=== PATIENT | male | born 1960 | race Caucasian/White ===

== ENCOUNTER 2017-01-28 14:22 | Inpatient (IN) | payer MEDICARE ==
[2017-01-28] MEDS ORDERED: ZIPRASIDONE 20 MG VIAL IM PRN (19:27)
[2017-01-28] MEDS ORDERED: ACETAMINOPHEN TAB 325 MG TAB PO PRN (19:27)
[2017-01-28] MEDS ORDERED: MAGNESIUM HYDROXIDE 2,400 MG/10 ML CUP PO PRN (19:27)
[2017-01-28] MEDS ORDERED: LORazepam 1 MG TAB PO PRN (19:27)
[2017-01-28] MEDS ORDERED: MAG HYDROX/AL HYDROX/SIMETH 30 ML CUP PO PRN (19:27)
[2017-01-28] MEDS ORDERED: ZOLPIDEM 10 MG TAB PO PRN (19:35)
[2017-01-28 20:15] LABS: Glucose,Whole Blood 314 mg/dL (75-99)
--- NOTE | 2017-01-28 20:47 | P.HPIM ---
History of Present Illness H&P Date: 01/28/17 Chief Complaint: Suicidal ideation 56-year-old male with past medical history significant for multiple medical problems as detailed below presented to the emergency department an outside facility because of throat and nasal congestion. He was tested for strep and flu and both came back negative. He then told the staff that he was thinking about killing himself. After that he was referred to our psychiatry facility. Patient recently broke up with his girlfriend about 1-2 weeks ago and that is why he feels down. He also lost his brother, father and mother several years ago and feels lonely. He denied having fevers, chills, nausea or vomiting, headaches, diaphoresis, abdominal pain, diarrhea, chest pain or shortness of breath. He uses a walker because of pain in his feet and knees. About one week ago he fell on his right knee and currently he is having right knee pain. He complained of significant insomnia and ask for the dose of the sleeping pill to be increased. The patient admitted that he chronically feels depressed, he has suicidal ideation on and off but at the time of interview he was not suicidal. He denies symptoms of anxiety. Review of Systems 12 point review of system performed, negative except for HPI Past Medical History Past Medical History: Diabetes Mellitus, Hypertension Additional Past Medical History / Comment(s): Morbid obesity, peripheral neuropathy, chronic osteoarthritis, insomnia, chronic depression, hyperlipidemia. History of Any Multi-Drug Resistant Organisms: None Reported Past Surgical History: No Surgical Hx Reported Past Psychological History: No Psychological Hx Reported Smoking Status: Current every day smoker Past Alcohol Use History: None Reported Past Drug Use History: None Reported Medications and Allergies Home Medications Medication Instructions Recorded Confirmed Type glipiZIDE [Glucotrol] 10 mg PO AC-BID 07/22/15 01/28/17 History metFORMIN HCL [Glucophage] 1,000 mg PO BID 07/22/15 01/28/17 History Atorvastatin [Lipitor] 20 mg PO DAILY 01/28/17 01/28/17 History Citalopram Hydrobromide [CeleXA] 20 mg PO DAILY 01/28/17 01/28/17 History Ibuprofen [Motrin] 600 mg PO Q8HR 01/28/17 01/28/17 History Pregabalin [Lyrica] 50 mg PO BID 01/28/17 01/28/17 History Zolpidem Tartrate [Ambien] 10 mg PO HS PRN 01/28/17 01/28/17 History amLODIPine [Norvasc] 10 mg PO DAILY 01/28/17 01/28/17 History Allergies Allergy/AdvReac Type Severity Reaction Status Date / Time Penicillins Allergy Rash/Hives Verified 07/22/15 11:58 Physical Exam Vitals: Vital Signs Temp Pulse Resp BP 01/28/17 18:05 98.1 F 73 16 150/77 Intake and Output 01/28/17 01/28/17 01/28/17 06:59 14:59 22:59 Other: Weight 131.343 kg Patient Weight 01/29/17 06:59 Weight 131.343 kg Constitutional: No acute distress, conversant, pleasant, morbidly obese Eyes:Anicteric sclerae, moist conjunctiva, no lid-lag, PERRLA, ENMT: Oropharynx clear, no erythema, exudates Neck: Supple, FROM, no masses, or JVD, No carotid bruits, No thyromegaly Lungs: Diminished breath sounds bilaterally, Clear to percussion, Normal respiratory effort, no accessory muscle use Cardiovascular: Heart regular in rate and rhythm, No murmurs, gallops, or rubs, No peripheral edema Abdominal: Obese, Soft, Nontender, no guarding, rebound or rigidity, Normoactive bowel sounds, No hepatomegaly, No splenomegaly, No palpable mass Skin: Normal temperature, tone, texture, turgor, no induration, No subcutaneous nodules, +scaly patchy rash on the elbows, No ulcers Extremities: No digital cyanosis, No clubbing, Pedal pulses intact and symmetrical, Radial pulses intact and symmetrical, No calf tenderness Psychiatric: Alert and oriented to person, place and time, appropriate affect, intact judgement Neuro: Muscles Strength 5/5 in all 4 extremities, Sensation to light touch grossly present throughout, Cranial nerves II-XII grossly intact, no focal sensory deficits Results Labs: Abnormal Lab Results - Last 24 Hours (Table) 01/28/17 Range/Units 20:09 POC Glucose (mg/dL) 314 H (75-99) mg/dL Assessment and Plan Plan: #1.Suicidal Ideation, major depression disorder: Management per psychiatry Currently patient is not suicidal. #2.Diabetes mellitus type 2 with peripheral neuropathy The patient was advised to lose weight and exercise Sliding scale insulin, with blood sugar checks every AC and HS Continue metformin and glipizide Already on Lyrica for peripheral neuropathy Check CBC and BMP, Mg and phos #3 Benign hypertension: Continue Norvasc #4 Hyperlipidemia Continue statin #5 smoking: Advised to quit Nicotine patch #6 Insomnia: Ambien 10 mg daily at bedtime when necessary
[2017-01-28] MEDS ORDERED: INSULIN REGULAR 100 UNIT/ML VIAL SQ SCH (21:00)
[2017-01-28] MEDS: PREGABALIN 50 MG CAP PO SCH (21:08)
[2017-01-28] MEDS: IBUPROFEN 600 MG TAB PO SCH (21:08)
[2017-01-28] MEDS: metFORMIN 500 MG TAB PO SCH (21:08)
[2017-01-28] MEDS: INSULIN LISPRO (humaLOG) 300 UNIT/3 ML VIAL SQ SCH (21:10)
[2017-01-28] MEDS: diphenhydrAMINE 50 MG CAP PO PRN (22:32)
[2017-01-29] MEDS: IBUPROFEN 600 MG TAB PO SCH ×4 (01:39→23:17)
[2017-01-29 04:44] LABS: Glucose,Whole Blood 158 mg/dL (75-99)
[2017-01-29 06:44] LABS: Glucose,Whole Blood 224 mg/dL (75-99)
[2017-01-29] MEDS: glipiZIDE 10 MG TAB PO SCH ×2 (08:52→17:55)
[2017-01-29] MEDS: amLODIPine 10 MG TAB PO SCH (08:52)
[2017-01-29] MEDS: PREGABALIN 50 MG CAP PO SCH ×2 (08:53→21:45)
[2017-01-29] MEDS: metFORMIN 500 MG TAB PO SCH ×2 (08:53→17:55)
[2017-01-29] MEDS: ATORVASTATIN 20 MG TAB PO SCH (08:53)
[2017-01-29] MEDS: CITALOPRAM HYDROBROMIDE 20 MG TAB PO SCH (08:53)
[2017-01-29] MEDS: NICOTINE 21MG/24HR PATCH TRANSDERM SCH (08:54)
[2017-01-29] MEDS: INSULIN LISPRO (humaLOG) 300 UNIT/3 ML VIAL SQ SCH ×4 (08:54→20:23)
[2017-01-29 09:49] LABS: Basophils # (A) 0.1 k/uL (0-0.2); Basophils % (A) 1 %; CH 29.9; CHCM 32.5; Eosinophils # (A) 0.3 k/uL (0-0.7); Eosinophils % (A) 3 %; HCT 49.3 % (39.0-53.0); HDW 2.75; HGB 15.6 gm/dL (13.0-17.5); Luc # (Auto) 0.28; Luc % (Auto) 3; Lymphocytes # (A) 2.6 k/uL (1.0-4.8); Lymphocytes % (A) 26 %; MCH 29.2 pg (25.0-35.0); MCHC 31.6 g/dL (31.0-37.0); MCV 92.4 fL (80.0-100.0); Mean Platelet Volume 6.9; Monocytes # (A) 0.5 k/uL (0-1.0); Monocytes % (A) 5 %; Neutrophils # (A) 6.5 k/uL (1.3-7.7); Neutrophils % (A) 63 %; RBC 5.33 m/uL (4.30-5.90); RDW 13.6 % (11.5-15.5); WBC 10.3 k/uL (3.8-10.6); WBC (Perox) 9.46
[2017-01-29 10:05] LABS: Cholesterol 144 mg/dL (<200); HDL Cholesterol 31 mg/dL (40-60)
[2017-01-29 10:36] LABS: ALT 50 U/L (21-72); AST 20 U/L (17-59); Alkaline Phosphatase 93 U/L (38-126); Anion Gap 11 mmol/L; Bilirubin, Delta 0.2 mg/dL (0.0-0.2); Blood Urea Nitrogen 17 mg/dL (9-20); Calcium 9.1 mg/dL (8.4-10.2); Carbon Dioxide 25 mmol/L (22-30); Chloride 102 mmol/L (98-107); Glucose 340 mg/dL (74-99); Magnesium 1.7 mg/dL (1.6-2.3); Non-African American GFR(MDRD) >60 (>60 ml/min/1.73 sqM); Phosphorus 3.8 mg/dL (2.5-4.5); Potassium 4.7 mmol/L (3.5-5.1); Sodium 138 mmol/L (137-145); Total Bilirubin 0.4 mg/dL (0.2-1.3); Total Protein 6.5 g/dL (6.3-8.2)
[2017-01-29 12:01] LABS: Hemoglobin A1C 9.8 % (4.2-6.1)
[2017-01-29 12:49] LABS: Glucose,Whole Blood 125 mg/dL (75-99)
[2017-01-29 17:05] LABS: Glucose,Whole Blood 273 mg/dL (75-99)
[2017-01-29 20:15] LABS: Glucose,Whole Blood 275 mg/dL (75-99)
--- NOTE | 2017-01-30 01:10 | P.HP ---
Psychiatric H&P - . H&P Date: 01/29/17 History & Physical: Allergy/AdvReac Type Severity Reaction Status Date / Time Penicillins Allergy Rash/Hives Verified 07/22/15 11:58 Vital Signs Temp 98 F 01/29/17 07:14 Pulse 75 01/29/17 07:14 Resp 16 01/29/17 07:14 BP 113/64 01/29/17 07:14 Pulse Ox Laboratory Last Values POC Glucose (mg/dL) 224 mg/dL (75-99) H 01/29/17 06:41 POC Glu Freelance Interpreter/Translator ID Jeannie Soler 01/29/17 06:41 HPI: Patient is a 56 year old Caucasia male who presents to the inpatient unit after endorsing new onset SI with plan to hang self. Patient called EMS and brought hospital. Patient denies any significant past psychiatric history other than an admission in 4-5 years ago for SI without plan and does not recall being discharged with any medications. Patient states he has been feeling increasingly depressed since his parents a few years ago and recently his girlfriend of 14 months abruptly left without notice to stay with her sister after learning that she had breast cancer. Patient states sister told girlfriend that patient was incompetent and unable to care for her and urged girlfriend to move. At present, patient endorses full criteria for MDD, he denies any symptoms suggestive of a past or recent manic episode. He denies any significant past trauma or abuse. At present denies SI/HI/AVH. Inpatient goals to improve mood, coping skills, and help with insomnia. PSYCHIATRIC HISTORY: admission for SI 4-5 years ago, uncertain of any medications prescribed, no post discharge follow up PMH: Past Medical History: Diabetes Mellitus, Hypertension Additional Past Medical History / Comment(s): Morbid obesity, peripheral neuropathy, chronic osteoarthritis, insomnia, chronic depression, hyperlipidemia. Past Surgical History: No Surgical Hx Reported Past Psychological History: No Psychological Hx Reported Smoking Status: Current every day smoker Past Alcohol Use History: None Reported Past Drug Use History: None Reported HOME MEDICATIONS: 3 Medication Instructions Recorded Confirmed glipiZIDE [Glucotrol] 10 mg PO AC-BID 07/22/15 01/28/17 metFORMIN HCL [Glucophage] 1,000 mg PO BID 07/22/15 01/28/17 Atorvastatin [Lipitor] 20 mg PO DAILY 01/28/17 01/28/17 Citalopram Hydrobromide [CeleXA] 20 mg PO DAILY 01/28/17 01/28/17 Ibuprofen [Motrin] 600 mg PO Q8HR 01/28/17 01/28/17 Pregabalin [Lyrica] 50 mg PO BID 01/28/17 01/28/17 Zolpidem Tartrate [Ambien] 10 mg PO HS PRN 01/28/17 01/28/17 amLODIPine [Norvasc] 10 mg PO DAILY 01/28/17 01/28/17 CHEMICAL DEPENDENCY HISTORY: none SOCIAL HISTORY: education: HS diploma occupational: 14 years ago, division engineer environmental: lives alone, apartment, 2nd floor : no religious: no access to firearms: no sexual orientation: heterosexual safety at home: yes STRENGTHS/WEAKNESSES: supportive family, stable house / uncontrolled diabetes MENTAL STATUS EXAM: Appearance: alert, well groomed, appears stated age, steady gait Behavior: no psychomotor agitation or psychomotor retardation, no abnormal movements, fair eye contact Attitude: cooperative Speech: normal rate, rhythm, fluency, articulation, volume, and prosody; primary language: Kyrgy[place] Mood: euthymic Affect: congruent, reactive Thought processes: linear, organized Thought content: patient does not appear to be responding to internal stimuli; patient denies auditory and visual hallucinations, no delusions appreciated Insight: fair Judgment: fair Cognitive: oriented to all 3 spheres, average intelligence Assessment and Plan (1) Major depressive disorder, single episode, severe Narrative/Plan: start Wellbutrin XL 150-mg PO QAM start Trazodone 100-mg PO QHS continue Celexa 20-mg PO QAM continue Ambien 10-mg PO QHS Current Visit: Yes Status: Acute Code(s): F32.2 - MAJOR DEPRESSV DISORD, SINGLE EPSD, SEV W/O PSYCH FEATURES SNOMED Code(s): 552230065097 Plan: Continue hospitalization, new onset MDD with SI with plan Patient encouraged to participate in group, recreational, and activity therapies Patient plans to discharge home back to family Time with Patient: Greater than 30
[2017-01-30 05:20] LABS: Glucose,Whole Blood 190 mg/dL (75-99)
[2017-01-30 05:41] VITALS: RESP 18
[2017-01-30] MEDS: INSULIN LISPRO (humaLOG) 300 UNIT/3 ML VIAL SQ SCH ×4 (07:55→21:43)
[2017-01-30] MEDS: glipiZIDE 10 MG TAB PO SCH ×2 (07:57→17:52)
[2017-01-30] MEDS: metFORMIN 500 MG TAB PO SCH ×2 (07:57→17:52)
[2017-01-30] MEDS: amLODIPine 10 MG TAB PO SCH (09:11)
[2017-01-30] MEDS: ATORVASTATIN 20 MG TAB PO SCH (09:11)
[2017-01-30] MEDS: PREGABALIN 50 MG CAP PO SCH ×2 (09:11→21:46)
[2017-01-30] MEDS: buPROPion XL 150 MG TAB.ER.24H PO SCH (09:11)
[2017-01-30] MEDS: CITALOPRAM HYDROBROMIDE 20 MG TAB PO SCH (09:11)
[2017-01-30] MEDS: IBUPROFEN 600 MG TAB PO SCH ×2 (09:12→16:45)
[2017-01-30 10:01] VITALS: BMI 45.3
[2017-01-30] MEDS ORDERED: ALBUTEROL NEBULIZED 2.5 MG/3 ML INHALATION PRN (10:02)
[2017-01-30] MEDS: NICOTINE 21MG/24HR PATCH TRANSDERM SCH (10:07)
[2017-01-30] MEDS: ALBUTEROL INHALER 60 PUFF/8 GM INHALER INHALATION PRN (12:19)
[2017-01-30 12:58] LABS: Glucose,Whole Blood 165 mg/dL (75-99)
[2017-01-30] MEDS ORDERED: IBUPROFEN 600 MG TAB PO PRN (16:47)
[2017-01-30 17:46] LABS: Glucose,Whole Blood 219 mg/dL (75-99)
[2017-01-30 20:15] LABS: Glucose,Whole Blood 278 mg/dL (75-99)
[2017-01-30] MEDS ORDERED: traZODone HCL 100 MG TAB PO SCH (21:00)
[2017-01-30 22:52] LABS: Glucose,Whole Blood 236 mg/dL (75-99)
[2017-01-30] MEDS: diphenhydrAMINE 50 MG CAP PO PRN (23:43)
--- NOTE | 2017-01-31 00:43 | P.PN ---
Progress Note - Text Progress Note Date: 01/30/17 Vital Signs: Temp 97.5 F L 01/30/17 05:40 Pulse 68 01/30/17 05:40 Resp 18 01/30/17 05:40 BP 149/72 01/30/17 05:40 Pulse Ox Interval History: Patient reports feeling better having slept through the night with addition of Trazodone to regimen. Reports contact with family and desire to discharge back home. States he has thought a lot about his situation, and no longer has SI. Plans to follow up OP with [facility]. At this time, denies SI/HI/AVH. Mental Status Exam: Appearance: alert, well groomed, appears stated age, steady gait Behavior: no psychomotor agitation or psychomotor retardation, no abnormal movements, fair eye contact Attitude: cooperative Speech: normal rate, rhythm, fluency, articulation, volume, and prosody; primary language: [place] Mood: euthymic Affect: congruent, reactive Thought processes: linear, organized Thought content: patient does not appear to be responding to internal stimuli; patient denies auditory and visual hallucinations, no delusions appreciated Insight: fair Judgment: fair Cognitive: oriented to all 3 spheres, average intelligence Plan: start Wellbutrin XL 150-mg PO QAM start Trazodone 100-mg PO QHS continue Celexa 20-mg PO QAM continue Ambien 10-mg PO QHS continue hospitalization patient encouraged to participate in group, recreational, and activity therapies patient plans to discharge home back to family
[2017-01-31 06:02] LABS: Glucose,Whole Blood 189 mg/dL (75-99)
[2017-01-31 06:52] VITALS: BP 154/67; PULSE 76; TEMP 97.6
[2017-01-31] MEDS: ALBUTEROL INHALER 60 PUFF/8 GM INHALER INHALATION PRN (07:46)
[2017-01-31] MEDS: amLODIPine 10 MG TAB PO SCH (08:49)
[2017-01-31] MEDS: glipiZIDE 10 MG TAB PO SCH (08:49)
[2017-01-31] MEDS: metFORMIN 500 MG TAB PO SCH (08:49)
[2017-01-31] MEDS: NICOTINE 21MG/24HR PATCH TRANSDERM SCH (08:50)
[2017-01-31] MEDS: PREGABALIN 50 MG CAP PO SCH (08:50)
[2017-01-31] MEDS: CITALOPRAM HYDROBROMIDE 20 MG TAB PO SCH (08:50)
[2017-01-31] MEDS: buPROPion XL 150 MG TAB.ER.24H PO SCH (08:50)
[2017-01-31] MEDS: INSULIN LISPRO (humaLOG) 300 UNIT/3 ML VIAL SQ SCH ×2 (08:50→12:37)
[2017-01-31] MEDS: ATORVASTATIN 20 MG TAB PO SCH (08:50)
--- NOTE | 2017-03-02 18:00 | P.DS ---
Providers Date of admission: 01/28/17 18:02 Expected date of discharge: 01/31/17 Attending physician: Jorgito Neely DO Consults: 01/28/17 19:27 Consult Physician Routine Consulting Provider: Miley Physician Consult Reason/Comments: H & P and medical care Do you want consulting provider notified?: Already Contacted Primary care physician: Jim Sharma - Discharge Diagnosis(es) (1) Major depressive disorder, single episode, severe Status: Acute Hospital Course: Patient is a 56-year-old male who presented to the inpatient unit after endorsing new onset SI with plan to hang self. Patient called EMS and brought to hospital. Patient denied any significant past psychiatric history other than an admission in 4-5 years ago for SI without plan and did not recall being discharged with any medications. Patient stated he has been feeling increasingly depressed since his parents a few years ago and recently his girlfriend of 14 months abruptly left without notice to stay with her sister after learning that she had breast cancer. Patient stated said sister told girlfriend that patient was incompetent and unable to care for her and urged girlfriend to move. At time of admission, patient endorsed full criteria for MDD , he denied any symptoms suggestive of a past or recent manic or hypomanic episodes. He denies any significant past trauma or abuse. Inpatient goals to improve mood, coping skills, and help with insomnia. Patient was started on Wellbutrin XL and Trazodone in addition to his current home regimen of Celexa, Ambien, and Lyrica. He tolerated these well and reported sleeping better the following night after admission. Patient requested discharge home stating he made a mistake, has no intention of harming self, and is certain his brothers will help him get into new OP appointments and have always been good social support. SW contacted family who had no objection to patient discharging today. Patient will follow up with [facility] as noted. Patient was compliant with medications, attended most group/recreational therapies. He attended all meals. Sleep improved as noted. Patient did not require emergency medication. During hospital course, insulin was adjusted. New prescriptions and prescription for glucometer were provided by medical team at time of discharge. At time of discharge, patient denied SI/HI/AVH. Pertinent Studies: Hemoglobin A1c 9.8 % (4.2-6.1) H 01/29/17 09:04 Patient Condition at Discharge: Stable Plan - Discharge Summary New Discharge Prescriptions: New Albuterol Inhaler [Ventolin Hfa Inhaler] 2 puff INHALATION RT-QID PRN #1 inhaler PRN Reason: Shortness Of Breath Or Wheezing Blood Sugar Diagnostic [Test Strips] 1 each AC-TID #100 strip Blood-Glucose Meter [Blood Glucose Monitor] 1 each AC-TID #1 each Lancets 1 each AC-TID #100 each Nicotine 21Mg/24Hr Patch [Habitrol] 1 patch TRANSDERM DAILY #14 patch INSULIN LISPRO (HumaLOG) [HumaLOG] See Protocol SQ ACHS #1 vial Continue amLODIPine [Norvasc] 10 mg PO DAILY #30 tab Atorvastatin [Lipitor] 20 mg PO DAILY #30 tab glipiZIDE [Glucotrol] 10 mg PO AC-BID #60 tab metFORMIN HCL [Glucophage] 1,000 mg PO BID #60 tablet Changed Ibuprofen [Motrin] 600 mg PO Q8HR PRN #9 tab PRN Reason: Pain No Action Citalopram Hydrobromide [CeleXA] 20 mg PO DAILY Pregabalin [Lyrica] 50 mg PO BID Zolpidem Tartrate [Ambien] 10 mg PO HS PRN PRN Reason: Insomnia Discharge Medication List Citalopram Hydrobromide [CeleXA] 20 mg PO DAILY 01/28/17 [History] Pregabalin [Lyrica] 50 mg PO BID 01/28/17 [History] Zolpidem Tartrate [Ambien] 10 mg PO HS PRN 01/28/17 [History] Albuterol Inhaler [Ventolin Hfa Inhaler] 2 puff INHALATION RT-QID PRN #1 inhaler 01/30/17 [Rx] Atorvastatin [Lipitor] 20 mg PO DAILY #30 tab 01/30/17 [Rx] Blood Sugar Diagnostic [Test Strips] 1 each AC-TID #100 strip 01/30/17 [Rx] Blood-Glucose Meter [Blood Glucose Monitor] 1 each AC-TID #1 each 01/30/17 [ Rx] Ibuprofen [Motrin] 600 mg PO Q8HR PRN #9 tab 01/30/17 [Rx] Lancets 1 each AC-TID #100 each 10/19/17 [Rx] Nicotine 21Mg/24Hr Patch [Habitrol] 1 patch TRANSDERM DAILY #14 patch 01/30/17 [ Rx] amLODIPine [Norvasc] 10 mg PO DAILY #30 tab 01/30/17 [Rx] glipiZIDE [Glucotrol] 10 mg PO AC-BID #60 tab 01/30/17 [Rx] metFORMIN HCL [Glucophage] 1,000 mg PO BID #60 tablet 01/30/17 [Rx] INSULIN LISPRO (HumaLOG) [HumaLOG] See Protocol SQ ACHS #1 vial 01/31/17 [Rx] Follow up Appointment(s)/Referral(s): [facility] [Outside] - 02/05/17 3:00 pm (Wagner Guzman) Patient Instructions/Handouts: Depression (DC) Activity/Diet/Wound Care/Special Instructions: Activity and diet as tolerated. Avoid the use of street drugs and alcohol. Take all medications as prescribed. When you are in need of refills on your medications please contact your medical provider and/or outpatient psychiatrist to have this done. Please go to scheduled outpatient appointment for aftercare. If symptoms return or become worse call the crisis line at and/ or go to the nearest emergency room for an evaluation Discharge Disposition: HOME SELF-CARE
== END 2017-01-31 12:16 | disposition home or self-care (01) | DRG 885 ==
LOC: 3MHU 18:02
PROVIDERS: ADMIT Psychiatry & Neurology Psychiatry; ATTEND Psychiatry & Neurology Psychiatry
DX: F32.2 Major depressive disorder, single episode, severe without psychotic features (principal); R45.851 Suicidal ideations; E11.42 Type 2 diabetes mellitus with diabetic polyneuropathy; E11.65 Type 2 diabetes mellitus with hyperglycemia; E78.5 Hyperlipidemia, unspecified; F17.200 Nicotine dependence, unspecified, uncomplicated; G47.00 Insomnia, unspecified; I10 Essential (primary) hypertension; E66.01 Morbid (severe) obesity due to excess calories; M25.561 Pain in right knee; R09.81 Nasal congestion; M19.90 Unspecified osteoarthritis, unspecified site; Z79.84 Long term (current) use of oral hypoglycemic drugs; Z79.899 Other long term (current) drug therapy; Z88.0 Allergy status to penicillin; W19.XXXA Unspecified fall, initial encounter
CPT/HCPCS: 80048; 80061; 80076; 83036; 83735; 84100; 84443; 85025; 94640

== ENCOUNTER 2017-08-09 20:08 | Inpatient (IN) | payer MEDICARE, MEDICAID ==
--- NOTE | 2017-08-09 20:42 | ED ---
Psych HPI - General Chief Complaint: Psychiatric Symptoms Stated Complaint: SUICIDAL Time Seen by Provider: 08/09/17 20:25 Source: patient, EMS, RN notes reviewed Mode of arrival: EMS - History of Present Illness Initial Comments: This is a 56-year-old male who presents to the emergency department for mental health evaluation. Patient states that he has been feeling "stressed out today. " He states he was thinking about his family members who have and felt sad. He states that he pulled a knife on himself. He contacted EMS himself and was transported to the emergency department. Patient states that he does currently have suicidal ideation but is feeling better. He denies homicidal ideation. Denies alcohol or illicit drug use. Denies visual hallucinations. He does state that he sometimes thinks that he hears his mother talking to him. Denies any recent illnesses. States that he has been feeling well physically. Denies fever, chills, chest pain, shortness of breath, abdominal pain, nausea or vomiting, constipation or diarrhea, dysuria or hematuria, numbness or tingling, headache or vision changes. - Related Data Home Medications Medication Instructions Recorded Confirmed Pregabalin [Lyrica] 50 mg PO BID 01/28/17 08/09/17 RX: Citalopram Hydrobromide 20 mg PO DAILY 01/28/17 08/09/17 [CeleXA] Zolpidem Tartrate [Ambien] 10 mg PO HS PRN 01/28/17 08/09/17 Previous Rx's Medication Instructions Recorded Blood Sugar Diagnostic [Test 1 each AC-TID #100 strip 01/30/17 Strips] Blood-Glucose Meter [Blood Glucose 1 each AC-TID #1 each 01/30/17 Monitor] RX: Atorvastatin [Lipitor] 20 mg PO DAILY #30 tab 01/30/17 RX: Ibuprofen [Motrin] 600 mg PO Q8HR PRN #9 tab 01/30/17 RX: Lancets 1 each AC-TID #100 each 01/30/17 RX: Nicotine 21Mg/24Hr Patch 1 patch TRANSDERM DAILY #14 patch 01/30/17 [Habitrol] RX: amLODIPine [Norvasc] 10 mg PO DAILY #30 tab 01/30/17 RX: glipiZIDE [Glucotrol] 10 mg PO AC-BID #60 tab 01/30/17 RX: metFORMIN HCL [Glucophage] 1,000 mg PO BID #60 tablet 01/30/17 Allergies Allergy/AdvReac Type Severity Reaction Status Date / Time Penicillins Allergy Rash/Hives Verified 08/09/17 20:12 Review of Systems ROS Statement: Those systems with pertinent positive or pertinent negative responses have been documented in the HPI. ROS Other: All systems not noted in ROS Statement are negative. Past Medical History Past Medical History: Diabetes Mellitus, Hyperlipidemia, Hypertension Additional Past Medical History / Comment(s): Morbid obesity, peripheral neuropathy, chronic osteoarthritis, insomnia, chronic depression, History of Any Multi-Drug Resistant Organisms: None Reported Past Surgical History: No Surgical Hx Reported Past Psychological History: Anxiety, Depression Smoking Status: Current every day smoker Past Alcohol Use History: None Reported Past Drug Use History: None Reported General Exam - General Exam Comments Initial Comments: General: Awake and alert, well-developed; in no apparent distress. HEENT: Head atraumatic, normocephalic. Pupils are equal, round and reactive to light. Extraocular movements intact. Oropharynx moist without erythema or exudate. Neck: Supple. Normal ROM. Cardiovascular: Regular rate and rhythm. No murmurs, rubs or gallops. Chest symmetrical. Respiratory: Lungs clear to auscultation bilaterally. No wheezes, rales or rhonchi. Normal respiratory effort with no use of accessory muscles. Abdomen: Soft, non-tender, non-distended. No rigidity, rebound or guarding. Normal bowel sounds in all 4 quadrants. Musculoskeletal: Normal ROM, no tenderness bilateral upper and lower extremities. Ambulating normally. Skin: [place], warm and dry with silver scaly patches noted on forehead and bilateral forearms. Neurological: Alert and oriented x3. CN II-XII grossly intact. Speech is fluent and answers are appropriate. No focal neuro deficits. Psychiatric: Normal mood and affect. No overt signs of depression or anxiety noted. Calm and cooperative. Good insight. Limitations: no limitations Course Vital Signs 08/09/17 20:12 Temperature 97.9 F Pulse Rate 82 Respiratory 20 Rate Blood Pressure 163/84 O2 Sat by Pulse 95 Oximetry Medical Decision Making - Medical Decision Making This is a 56-year-old male who presented to the emergency department with chief complaint of suicidal ideation. BAT and urine drug screen were negative. Patient does continue to have suicidal ideation and states that he wants to take a knife and end his life. EKG revealed normal sinus rhythm with right bundle branch block. No previous EKG to compare to. Patient denies chest pain or shortness of breath. CBC revealed a white count of 14.0 with left shift at 8.7. CMP and UA were unremarkable. Patient has no physical complaints and states that he feels fine. I did offer a chest x-ray and patient declined. Patient was evaluated by EPS nurse and recommendation is admission to the hospital. Patient is accepted by psychiatrist at this time. Vital signs are stable and he is in no acute distress. Patient will be admitted to the psychiatric unit. - Lab Data Result diagrams: 08/09/17 20:47 08/09/17 20:47 Lab Results 08/09/17 08/09/17 08/09/17 Range/Units 20:18 20:47 20:47 WBC 14.0 H (3.8-10.6) k/uL RBC 5.85 (4.30-5.90) m/uL Hgb 16.6 (13.0-17.5) gm/dL Hct 49.9 (39.0-53.0) % MCV 85.2 (80.0-100.0) fL MCH 28.4 (25.0-35.0) pg MCHC 33.3 (31.0-37.0) g/dL RDW 13.4 (11.5-15.5) % Plt Count 218 (150-450) k/uL Neutrophils % 62 % Lymphocytes % 29 % Monocytes % 5 % Eosinophils % 2 % Basophils % 0 % Neutrophils # 8.7 H (1.3-7.7) k/uL Lymphocytes # 4.1 (1.0-4.8) k/uL Monocytes # 0.6 (0-1.0) k/uL Eosinophils # 0.3 (0-0.7) k/uL Basophils # 0.1 (0-0.2) k/uL Sodium 139 (137-145) mmol/L Potassium 4.5 (3.5-5.1) mmol/L Chloride 101 (98-107) mmol/L Carbon Dioxide 25 (22-30) mmol/L Anion Gap 13 mmol/L BUN 17 (9-20) mg/dL Creatinine 0.60 L (0.66-1.25) mg/dL Est GFR (CKD-EPI)AfAm >90 (>60 ml/min/1.73 sqM) Est GFR (CKD-EPI)NonAf >90 (>60 ml/min/1.73 sqM) Glucose 165 H (74-99) mg/dL Calcium 10.2 (8.4-10.2) mg/dL Total Bilirubin 0.5 (0.2-1.3) mg/dL AST 17 (17-59) U/L ALT 30 (21-72) U/L Alkaline Phosphatase 91 (38-126) U/L Total Protein 6.9 (6.3-8.2) g/dL Albumin 4.4 (3.5-5.0) g/dL Urine Color Yellow Urine Appearance Clear (Clear) Urine pH 5.5 (5.0-8.0) Ur Specific [place] 1.013 (1.001-1.035) Urine Protein 1+ H (Negative) Urine Glucose (UA) Trace H (Negative) Urine Ketones Negative (Negative) Urine Blood Negative (Negative) Urine Nitrite Negative (Negative) Urine Bilirubin Negative (Negative) Urine Urobilinogen <2.0 (<2.0) mg/dL Ur Leukocyte Esterase Negative (Negative) Urine RBC <1 (0-5) /hpf Urine WBC <1 (0-5) /hpf Ur Squamous Epith Cells <1 (0-4) /hpf Urine Mucus Rare H (None) /hpf Urine Opiates Screen Not Detected (NotDetected) Ur Oxycodone Screen Not Detected (NotDetected) Urine Methadone Screen Not Detected (NotDetected) Ur Propoxyphene Screen Not Detected (NotDetected) Ur Barbiturates Screen Not Detected (NotDetected) U Tricyclic Antidepress Not Detected (NotDetected) Ur Phencyclidine Scrn Not Detected (NotDetected) Ur Amphetamines Screen Not Detected (NotDetected) U Methamphetamines Scrn Not Detected (NotDetected) U Benzodiazepines Scrn Not Detected (NotDetected) Urine Cocaine Screen Not Detected (NotDetected) U Marijuana (THC) Screen Not Detected (NotDetected) - EKG Data EKG Comments: 20:52:12. Normal sinus rhythm, right bundle branch block. Ventricular rate 83 bpm, IL interval 146, QRS duration 138, QT/QTC 386/453 Disposition Clinical Impression: Suicidal ideation, Major depression Disposition: ADMITTED IP TO THIS HOSP Condition: Stable Is patient prescribed a controlled substance at d/c from ED?: No Referrals: Nonstaff,Physician [REFERRING] - 1-2 days Time of Disposition: 22:36
[2017-08-09 20:58] LABS: Basophils # (A) 0.1 k/uL (0-0.2); Basophils % (A) 0 %; Eosinophils # (A) 0.3 k/uL (0-0.7); Eosinophils % (A) 2 %; HCT 49.9 % (39.0-53.0); HGB 16.6 gm/dL (13.0-17.5); Lymphocytes # (A) 4.1 k/uL (1.0-4.8); Lymphocytes % (A) 29 %; MCH 28.4 pg (25.0-35.0); MCHC 33.3 g/dL (31.0-37.0); MCV 85.2 fL (80.0-100.0); Mean Platelet Volume 7.2; Monocytes # (A) 0.6 k/uL (0-1.0); Monocytes % (A) 5 %; Neutrophils # (A) 8.7 k/uL (1.3-7.7); Neutrophils % (A) 62 %; Platelet Count 218 k/uL (150-450); RBC 5.85 m/uL (4.30-5.90); RDW 13.4 % (11.5-15.5)
[2017-08-09 21:05] LABS: ALT 30 U/L (21-72); AST 17 U/L (17-59); Albumin 4.4 g/dL (3.5-5.0); Alkaline Phosphatase 91 U/L (38-126); Anion Gap 13 mmol/L; Blood Urea Nitrogen 17 mg/dL (9-20); Calcium 10.2 mg/dL (8.4-10.2); Carbon Dioxide 25 mmol/L (22-30); Chloride 101 mmol/L (98-107); Glucose 165 mg/dL (74-99); Potassium 4.5 mmol/L (3.5-5.1); Sodium 139 mmol/L (137-145); Total Bilirubin 0.5 mg/dL (0.2-1.3); Total Protein 6.9 g/dL (6.3-8.2)
[2017-08-09 21:24] LABS: Appearance,Urine Clear (Clear); Bilirubin,Urine Negative (Negative); Blood,Urine Negative (Negative); Color,Urine Yellow; Glucose,Urine (UA) Trace (Negative); Ketones,Urine Negative (Negative); Leukocyte Esterase,Urine Negative (Negative); Mucus,Urine Rare /hpf; Nitrite,Urine Negative (Negative); PH, Urine 5.5 (5.0-8.0); Protein,Urine 1+ (Negative); RBC,Urine <1 /hpf (0-5); Specific Gravity,Urine 1.013 (1.001-1.035); Squamous Epithelial Cell,Urine <1 /hpf (0-4); Urobilinogen,Urine <2.0 mg/dL (<2.0); WBC,Urine <1 /hpf (0-5)
[2017-08-09 21:30] LABS: Amphetamine Screen,Urine Not Detected (NotDetected); Barbiturate Screen,Urine Not Detected (NotDetected); Benzodiazepines Screen,Urine Not Detected (NotDetected); Cocaine Screen,Urine Not Detected (NotDetected); Methadone Screen, Urine Not Detected (NotDetected); Opiate Screen,Urine Not Detected (NotDetected); Oxycodone Screen, Urine Not Detected (NotDetected); Phencyclidine Screen,Urine Not Detected (NotDetected); Tricyclic Antidepressant,Urine Not Detected (NotDetected); Urn Cannabinoid Scrn Not Detected (NotDetected)
[2017-08-10] MEDS ORDERED: MAGNESIUM HYDROXIDE 2,400 MG/10 ML CUP PO PRN (00:01)
[2017-08-10] MEDS ORDERED: ACETAMINOPHEN TAB 325 MG TAB PO PRN (00:01)
[2017-08-10] MEDS ORDERED: MAG HYDROX/AL HYDROX/SIMETH 30 ML CUP PO PRN (00:01)
[2017-08-10] MEDS ORDERED: IBUPROFEN 600 MG TAB PO PRN (00:03)
[2017-08-10 00:22] VITALS: BMI 40.5
[2017-08-10] MEDS: ZOLPIDEM 10 MG TAB PO PRN (00:36)
[2017-08-10] MEDS: NICOTINE 21MG/24HR PATCH TRANSDERM SCH ×2 (01:13→08:39)
[2017-08-10 06:54] LABS: Glucose,Whole Blood 194 mg/dL (75-99)
--- NOTE | 2017-08-10 07:38 | P.MDCNMH ---
History of Present Illness H&P Date: 08/10/17 Chief Complaint: Suicide thoughts 56-year-old male with history of diabetes. Patient reports that he is family members, and that he started having the suicidal wants, he was thinking of using his right hand his life. He recognizes that he should seek medical help when he starts to have these thoughts and decided to call the police seeking help and asked them to bring him to the hospital. Currently he denies any physical complaints or medical concerns Review of Systems Constitutional: Patient denies fever, denies chills, denies night sweating, denies significant weight changes Eyes: Patient denies visual changes, denies eye pain ENT: Patient denies ear pain, denies rhinorrhea, denies sore throat Cardiovascular: Patient denies chest pain, denies exertional dyspnea, denies peripheral leg edema, denies orthopnea, denies paroxysmal nocturnal dyspnea Respiratory:Patient denies cough, denies wheezing, denies shortness of breath Gastrointestinal: Patient denies diarrhea, denies constipation, denies nausea , denies vomiting, denies abdominal pain Genitourinary: Patient denies dysuria, denies hematuria, denies changes in urinary habits, denies genital lesions Musculoskeletal: Patient denies muscle pain, reports knee pain bilateral Psychiatric: Patient reports depressed mood, reports suicidal ideation, denies anxiety Endocrine: Patient denies heat intolerance, denies cold intolerance, denies excessive thirst, denies polyuria Neurological: Patient denies focal neurologic deficits, denies weakness, denies numbness, denies tingling Hem/Lymphatic: Patient denies bleeding tendency, denies bruising, denies swollen lymph glands Allergic/Immun: Patient denies recent allergic reactions Skin: Patient reports history of psoriasis, denies ulcers Past Medical History Past Medical History: Diabetes Mellitus, Hyperlipidemia, Hypertension Additional Past Medical History / Comment(s): Morbid obesity, peripheral neuropathy, chronic osteoarthritis, insomnia, chronic depression, psoriasis History of Any Multi-Drug Resistant Organisms: None Reported Past Surgical History: No Surgical Hx Reported Smoking Status: Current every day smoker - Past Family History Family Additional Family Medical History / Comment(s): Lung cancer in his mother Medications and Allergies Home Medications Medication Instructions Recorded Confirmed Type Citalopram Hydrobromide [CeleXA] 20 mg PO DAILY 01/28/17 08/09/17 History Pregabalin [Lyrica] 50 mg PO BID 01/28/17 08/09/17 History Zolpidem Tartrate [Ambien] 10 mg PO HS PRN 01/28/17 08/09/17 History Atorvastatin [Lipitor] 20 mg PO DAILY #30 tab 01/30/17 08/09/17 Rx Blood Sugar Diagnostic [Test 1 each AC-TID #100 strip 01/30/17 08/09/17 Rx Strips] Blood-Glucose Meter [Blood Glucose 1 each AC-TID #1 each 01/30/17 08/09/17 Rx Monitor] Ibuprofen [Motrin] 600 mg PO Q8HR PRN #9 tab 01/30/17 08/09/17 Rx Lancets 1 each AC-TID #100 each 01/30/17 08/09/17 Rx Nicotine 21Mg/24Hr Patch [Habitrol] 1 patch TRANSDERM DAILY #14 patch 01/30/17 08/09/17 Rx amLODIPine [Norvasc] 10 mg PO DAILY #30 tab 01/30/17 08/09/17 Rx glipiZIDE [Glucotrol] 10 mg PO AC-BID #60 tab 01/30/17 08/09/17 Rx metFORMIN HCL [Glucophage] 1,000 mg PO BID #60 tablet 01/30/17 08/09/17 Rx Allergies Allergy/AdvReac Type Severity Reaction Status Date / Time Penicillins Allergy Rash/Hives Verified 08/09/17 23:45 Physical Exam Vitals: Vital Signs Temp Pulse Pulse Resp BP BP Pulse Ox 08/09/17 23:48 97.2 F L 78 17 143/76 08/09/17 23:16 98.2 F 94 18 150/71 95 08/09/17 20:12 97.9 F 82 20 163/84 95 Intake and Output 08/09/17 08/10/17 08/10/17 22:59 06:59 14:59 Other: Weight 104.326 kg 121 kg Constitutional: No acute distress, conversant, pleasant Eyes: Anicteric sclerae, moist conjunctiva, no lid-lag Pupils equal round reactive to light ENMT: NC/AT Oropharynx clear, no erythema, no exudates Neck: Supple, FROM, no masses, or JVD No carotid bruits No thyromegaly Lungs: Clear to auscultation Clear to percussion Normal respiratory effort, no accessory muscle use Cardiovascular: Heart regular in rate and rhythm, No murmurs, gallops, or rubs No peripheral edema Abdominal: Soft Nontender, no guarding, rebound or rigidity Abdomen moving with respiration Normoactive bowel sounds No hepatomegaly, No splenomegaly No palpable mass No abdominal wall hernia noted Skin: Normal temperature, tone, texture, turgor No induration No subcutaneous nodules has psoriatic skin lesions over the elbows bilaterally, patchy scaly pinkish lesions No ulcers Extremities: No digital cyanosis No clubbing Pedal pulses intact and symmetrical Radial pulses intact and symmetrical No calf tenderness Psychiatric: Alert and oriented to person, place and time Appropriate affect fair judgment Neuro Muscles Strength 4/5 in all 4 extremities Sensation to light touch grossly present throughout No focal sensory deficits Lymphatics: no palpable cervical or supraclavicular , or inguinal lymph nodes Cranial Nerve Examination - Cranial Nerves Cranial Nerve II- Optic: Intact Cranial Nerve III- Oculomotor: Intact Cranial Nerve IV- Trochlear: Intact Cranial Nerve V- Trigeminal: Intact Cranial Nerve - Abducens: Intact Cranial Nerve VII- Facial: Intact Cranial Nerve VIII- Auditory: Intact Cranial Nerve IX- Glossopharyngeal: Intact Cranial Nerve X- Vagus: Intact Cranial Nerve XI- Accessory: Intact Cranial Nerve XII- Hypoglossal: Intact Results CBC & Chem 7: 08/09/17 20:47 08/09/17 20:47 Labs: Abnormal Lab Results - Last 24 Hours (Table) 08/09/17 08/09/17 08/09/17 Range/Units 20:18 20:47 20:47 WBC 14.0 H (3.8-10.6) k/uL Neutrophils # 8.7 H (1.3-7.7) k/uL Creatinine 0.60 L (0.66-1.25) mg/dL Glucose 165 H (74-99) mg/dL POC Glucose (mg/dL) (75-99) mg/dL Urine Protein 1+ H (Negative) Urine Glucose (UA) Trace H (Negative) Urine Mucus Rare H (None) /hpf 08/10/17 Range/Units 06:51 WBC (3.8-10.6) k/uL Neutrophils # (1.3-7.7) k/uL Creatinine (0.66-1.25) mg/dL Glucose (74-99) mg/dL POC Glucose (mg/dL) 194 H (75-99) mg/dL Urine Protein (Negative) Urine Glucose (UA) (Negative) Urine Mucus (None) /hpf Assessment and Plan Plan: 56-year-old male with history of hypertension and diabetes, presented to the hospital due to suicidal ideation. #Suicidal ideation Management per psych #Depression Continue home medications management per psych #Leukocytosis No evidence of infection at this Afebrile #Hypertension Continue amlodipine #Hyperlipidemia Continue atorvastatin #Diabetes mellitus Continue with oral hypoglycemic agents #Smoking Nicotine replacement therapy offered Counseling to quit smoking #DVT prophylaxis Patient is ambulatory low risk Thank you for allowing us to participate in the care of this patient. We will follow peripherally. Do not hesitate to contact us with questions. Someone can be reached from the [facility] hospitalist group at all hours of the day at [phone].
[2017-08-10] MEDS: glipiZIDE 10 MG TAB PO SCH ×2 (08:39→17:12)
[2017-08-10] MEDS: ATORVASTATIN 20 MG TAB PO SCH (08:39)
[2017-08-10] MEDS: amLODIPine 10 MG TAB PO SCH (08:40)
[2017-08-10] MEDS: SERTRALINE 25 MG TAB PO SCH (08:40)
[2017-08-10] MEDS: metFORMIN 500 MG TAB PO SCH ×2 (08:40→21:27)
[2017-08-10] MEDS ORDERED: NICOTINE 21MG/24HR PATCH TRANSDERM SCH ×2 (09:00)
--- NOTE | 2017-08-10 14:17 | P.HP ---
Psychiatric H&P - . H&P Date: 08/10/17 History & Physical: Allergies Allergy/AdvReac Type Severity Reaction Status Date / Time Penicillins Allergy Rash/Hives Verified 08/09/17 23:45 Vital Signs Temp 97.2 F L 08/09/17 23:48 Pulse 93 08/10/17 08:55 Resp 22 08/10/17 08:55 BP 134/71 08/10/17 08:55 Pulse Ox 95 08/09/17 23:16 Intake & Output 08/09/17 08/10/17 08/10/17 18:59 06:59 18:59 Weight 121 kg Laboratory Last Values WBC 14.0 k/uL (3.8-10.6) H 08/09/17 20:47 RBC 5.85 m/uL (4.30-5.90) 08/09/17 20:47 Hgb 16.6 gm/dL (13.0-17.5) 08/09/17 20:47 Hct 49.9 % (39.0-53.0) 08/09/17 20:47 MCV 85.2 fL (80.0-100.0) 08/09/17 20:47 MCH 28.4 pg (25.0-35.0) 08/09/17 20:47 MCHC 33.3 g/dL (31.0-37.0) 08/09/17 20:47 RDW 13.4 % (11.5-15.5) 08/09/17 20:47 Plt Count 218 k/uL (150-450) 08/09/17 20:47 Neutrophils % 62 % 08/09/17 20:47 Lymphocytes % 29 % 08/09/17 20:47 Monocytes % 5 % 08/09/17 20:47 Eosinophils % 2 % 08/09/17 20:47 Basophils % 0 % 08/09/17 20:47 Neutrophils # 8.7 k/uL (1.3-7.7) H 08/09/17 20:47 Lymphocytes # 4.1 k/uL (1.0-4.8) 08/09/17 20:47 Monocytes # 0.6 k/uL (0-1.0) 08/09/17 20:47 Eosinophils # 0.3 k/uL (0-0.7) 08/09/17 20:47 Basophils # 0.1 k/uL (0-0.2) 08/09/17 20:47 Sodium 139 mmol/L (137-145) 08/09/17 20:47 Potassium 4.5 mmol/L (3.5-5.1) 08/09/17 20:47 Chloride 101 mmol/L (98-107) 08/09/17 20:47 Carbon Dioxide 25 mmol/L (22-30) 08/09/17 20:47 Anion Gap 13 mmol/L 08/09/17 20:47 BUN 17 mg/dL (9-20) 08/09/17 20:47 Creatinine 0.60 mg/dL (0.66-1.25) L 08/09/17 20:47 Est GFR (CKD-EPI)AfAm >90 (>60 ml/min/1.73 sqM) 08/09/17 20:47 Est GFR (CKD-EPI)NonAf >90 (>60 ml/min/1.73 sqM) 08/09/17 20:47 Glucose 165 mg/dL (74-99) H 08/09/17 20:47 POC Glucose (mg/dL) 194 mg/dL (75-99) H 08/10/17 06:51 POC Glu [employer] ID Shirley Kaufman 08/10/17 06:51 Calcium 10.2 mg/dL (8.4-10.2) 08/09/17 20:47 Total Bilirubin 0.5 mg/dL (0.2-1.3) 08/09/17 20:47 AST 17 U/L (17-59) 08/09/17 20:47 ALT 30 U/L (21-72) 08/09/17 20:47 Alkaline Phosphatase 91 U/L (38-126) 08/09/17 20:47 Total Protein 6.9 g/dL (6.3-8.2) 08/09/17 20:47 Albumin 4.4 g/dL (3.5-5.0) 08/09/17 20:47 Urine Color Yellow 08/09/17 20:18 Urine Appearance Clear (Clear) 08/09/17 20:18 Urine pH 5.5 (5.0-8.0) 08/09/17 20:18 Ur Specific [place] 1.013 (1.001-1.035) 08/09/17 20:18 Urine Protein 1+ (Negative) H 08/09/17 20:18 Urine Glucose (UA) Trace (Negative) H 08/09/17 20:18 Urine Ketones Negative (Negative) 08/09/17 20:18 Urine Blood Negative (Negative) 08/09/17 20:18 Urine Nitrite Negative (Negative) 08/09/17 20:18 Urine Bilirubin Negative (Negative) 08/09/17 20:18 Urine Urobilinogen <2.0 mg/dL (<2.0) 08/09/17 20:18 Ur Leukocyte Esterase Negative (Negative) 08/09/17 20:18 Urine RBC <1 /hpf (0-5) 08/09/17 20:18 Urine WBC <1 /hpf (0-5) 08/09/17 20:18 Ur Squamous Epith Cells <1 /hpf (0-4) 08/09/17 20:18 Urine Mucus Rare /hpf (None) H 08/09/17 20:18 Urine Opiates Screen Not Detected (NotDetected) 08/09/17 20:18 Ur Oxycodone Screen Not Detected (NotDetected) 08/09/17 20:18 Urine Methadone Screen Not Detected (NotDetected) 08/09/17 20:18 Ur Propoxyphene Screen Not Detected (NotDetected) 08/09/17 20:18 Ur Barbiturates Screen Not Detected (NotDetected) 08/09/17 20:18 U Tricyclic Antidepress Not Detected (NotDetected) 08/09/17 20:18 Ur Phencyclidine Scrn Not Detected (NotDetected) 08/09/17 20:18 Ur Amphetamines Screen Not Detected (NotDetected) 08/09/17 20:18 U Methamphetamines Scrn Not Detected (NotDetected) 08/09/17 20:18 U Benzodiazepines Scrn Not Detected (NotDetected) 08/09/17 20:18 Urine Cocaine Screen Not Detected (NotDetected) 08/09/17 20:18 U Marijuana (THC) Screen Not Detected (NotDetected) 08/09/17 20:18 08/10/17 13:34 Chief complaint I am overwhelmed stressed I almost killed myself. History of presenting illness Patient reports feeling sad and hopeless worthless. He reports he has been living with his girlfriend's mother in [place]. He reports there are demanding more money from him and are taking his food stamps from him. Stated he doesn't feel safe living with them. He reports he'll kill himself if he has to go back there. He wanted to kill himself with a kitchen knife but decided to call 911 for help. Reports his mother 7 years ago and his father 4 years ago. He reports hearing his mother's voice telling him "how are you doing time to go". He reports feeling sad thinking about the of his parents. He reports poor sleep and appetite. He reports low motivation and energy levels. He reports poor concentration and memory. He states he cannot think straight. He reports he wants help finding a place in [place]. He is somewhat currently worried about getting his property his clothes back from [place]. Since his discharge from the psychiatric hospitalization in January 2017 he claims to have not followed up with the outpatient mental health clinic and he reports to have stopped taking all his psychiatric medications. He denies current symptoms of nora. Past psychiatric history Reports being started on psychiatric medications 10 years ago for depression. He reports two psychiatric hospitalizations one 5 years ago and second one in January 2017 for depression and suicidal ideations . He denies past suicidal attempts. Substance use history Claims to have stopped drinking alcohol 18 years ago. His use of any other illicit drugs. Denies rehab treatment Legal problems None reported Family psychiatric treatment history Denies Medical history Allergies LMP Social history Mental status exam Diagnosis Plan She will have physical examination and psychosocial evaluation. She will be observed for any self abusive behavior. She will receive milieu therapy group therapy individual therapy occupational therapy recreational therapy and medication education. After discussing her condition it was agreed for her to try Seroquel 25 mg at bedtime for "mood stabilization". Adjust the dose as necessary. Discharge with outpatient follow-up. Treatment goals: She will continue to be free of suicide thoughts and behavior. She will be free of self abusive behavior. She will learn better coping skills. Past Medical History: Diabetes Mellitus, Hyperlipidemia, Hypertension Additional Past Medical History / Comment(s): Morbid obesity, peripheral neuropathy, chronic osteoarthritis, insomnia, chronic depression, psoriasis
[2017-08-10 18:07] LABS: Glucose,Whole Blood 259 mg/dL (75-99)
[2017-08-10 20:03] LABS: Glucose,Whole Blood 302 mg/dL (75-99)
[2017-08-10] MEDS: INSULIN ASPART 100 UNIT/ML 1 ML 10 ML VIAL SQ SCH (21:29)
[2017-08-11 07:02] LABS: Glucose,Whole Blood 146 mg/dL (75-99)
[2017-08-11] MEDS: INSULIN ASPART 100 UNIT/ML 1 ML 10 ML VIAL SQ SCH ×4 (08:03→21:24)
[2017-08-11] MEDS: ATORVASTATIN 20 MG TAB PO SCH (08:05)
[2017-08-11] MEDS: metFORMIN 500 MG TAB PO SCH ×2 (08:05→20:29)
[2017-08-11] MEDS: glipiZIDE 10 MG TAB PO SCH ×2 (08:05→17:59)
[2017-08-11] MEDS: SERTRALINE 25 MG TAB PO SCH (08:05)
[2017-08-11] MEDS: amLODIPine 10 MG TAB PO SCH (08:05)
[2017-08-11] MEDS: NICOTINE 21MG/24HR PATCH TRANSDERM SCH (08:06)
[2017-08-11 12:50] LABS: Hemoglobin A1C 8.9 % (4.0-6.0)
[2017-08-11 13:18] LABS: Glucose,Whole Blood 153 mg/dL (75-99)
--- NOTE | 2017-08-11 14:27 | P.PN ---
Progress Note - Text Progress Note Date: 08/11/17 Interval History: Patient is a 56-year-old male who was seen today and he reports that he is doing slightly better. He states that he was not following up with [facility] having not been seen since 2017 after one visit after his discharge here from the hospital in January 2017. Patient states that he was not taking any medications as an outpatient. Patient states that he had a knife in his hand and did not want to kill himself and did not want to . Patient states he is not currently having any suicidal thoughts. Patient states that he occasionally hears his mother's voice telling him to not do things. He reports no current auditory hallucinations. Patient states that he is going to go to [place] to live and his brother is coming to get him on August 25. Patient states he has not been testing his blood sugars as an outpatient cousin no longer has a glucometer. Patient reported no side effects from the Zoloft. Mental Status: Appearance/Attitude: Patient is casually dressed, using a walker to ambulate and is bent over at the waist using the walker, he makes good eye contact and is cooperative Behavior: Patient does not display any psychomotor agitation or retardation. Speech/Language: Patient's speech is spontaneous of normal volume and rhythm and he is coherent. Thought Process: Patient is goal-directed there is no evidence of loose associations or flight of ideas. Thought Content: Patient denies current auditory or visual hallucinations and no delusions or paranoid ideation were elicited. The patient states that he is not feeling as depressed and states he is no longer feeling suicidal. He states that he was not in a good living situation and had also not been going to outpatient follow-up after his most recent discharge. Patient states that he slept fairly well last evening but uses Ambien for sleep and has been doing so for quite some time given to him by his primary care physician. Patient reports his appetite is good Suicidal/Homicidal Ideation: Patient denies any current suicidal or homicidal ideation Sensorium/Cognition: Patient is alert and oriented to person, place, and time and his recent and remote memory are grossly intact. Mood/Affect: Patient's mood is slightly depressed and his affect is appropriate Insight/Judgment: Patient's insight and judgment are fair Assessment: Patient reports that he was thinking of his mother and dad and had a knife but changed his mind as he didn't want to and didn't cut himself. Patient states that his mother's voice sometimes tells him to not do things. He states after his discharge from the inpatient setting in January 2017 he did not follow-up after one visit at [facility] and was not taking his psychotropic medication. Patient states that he is moving to [place] as his brother is coming to pick him up on August 25 and taken back to [place] with him. Patient reports he has not been caring for his diabetes because he does not have a glucometer anymore. Patient states that he's been attending some groups and activities. Plan: Patient's Zoloft to be increased to 50 mg in the morning to target his depressive symptoms. Patient and I discussed the use and side effects of the medication. Patient was encouraged to use the Ambien on an only as-needed basis he states he's been on this for a number of years from his primary care physician. Patient continues to require hospitalization to further stabilize his mood. Patient states that once he is discharged he will stay with a cousin until his brother comes to get him and take him to [place].
[2017-08-11 18:10] LABS: Glucose,Whole Blood 228 mg/dL (75-99)
[2017-08-11 20:34] LABS: Glucose,Whole Blood 374 mg/dL (75-99)
[2017-08-11] MEDS: ZOLPIDEM 10 MG TAB PO PRN (22:23)
[2017-08-12 04:18] VITALS: TEMP 97.9
[2017-08-12 05:41] LABS: Glucose,Whole Blood 158 mg/dL (75-99)
[2017-08-12] MEDS: amLODIPine 10 MG TAB PO SCH (08:34)
[2017-08-12] MEDS: metFORMIN 500 MG TAB PO SCH (08:35)
[2017-08-12] MEDS: glipiZIDE 10 MG TAB PO SCH (08:35)
[2017-08-12] MEDS: INSULIN ASPART 100 UNIT/ML 1 ML 10 ML VIAL SQ SCH ×2 (08:35→13:07)
[2017-08-12] MEDS: ATORVASTATIN 20 MG TAB PO SCH (08:35)
[2017-08-12] MEDS: NICOTINE 21MG/24HR PATCH TRANSDERM SCH (08:47)
[2017-08-12 08:52] VITALS: BP 153/67; PULSE 74; RESP 22
[2017-08-12] MEDS ORDERED: SERTRALINE 50 MG TAB PO SCH (09:00)
--- NOTE | 2017-08-12 10:39 | P.DS ---
Providers Date of admission: 08/09/17 22:58 Expected date of discharge: 08/12/17 Attending physician: Rebecca Cain MD Consults: 08/10/17 00:01 Consult Physician Routine Consulting Provider: Miley Santana Consult Reason/Comments: H&P for mental health admission Do you want consulting provider notified?: Yes Primary care physician: Stated None Hospital Course: Discharge Diagnosis: Major depressive episode, recurrent, moderate severity Reason for Admission: Patient is a 56-year-old male who was brought to the emergency room by EMS. Patient reported that he was so depressed that he grabbed a kitchen knife and was going to kill himself. He called 911 for help. Patient reportedly was to [facility] but patient had not been there in quite some time. Patient had been living with his ex- girlfriends mother and he reported that they did not treat him well. Patient also states that he was upset over the of his parents which occurred in the past. Patient had been in the mental health unit in January 2017 when he again had suicidal thoughts with plans. Patient [facility] after his discharge and did not continue taking the medications that were prescribed for him. Patient reports that he did not want to kill himself and did not want to and did have the knife in his hand. He reports difficulties at his prior living situation where they were asking him to pay more money towards expenses. Patient reported on admission that he occasionally hears his mother's voice telling him to not do things, he was feeling depressed as well as having suicidal thoughts with a plan to cut himself. He reports that his sleep has not been good. Patient has not been caring for his diabetes as he states that his glucometer was no longer working. Hospital Course: Patient was admitted on a voluntary basis, routine observation was ordered as well as group and activity therapy. Patient was also ordered routine laboratory studies as well as a medical consultation. Patient was begun on Zoloft which was begun at 25 mg and increase to 50 mg to target his depressive symptoms. Patient was also continued on his medications for his elevated lipids, hypertension and type 2 diabetes. Patient was not restarted on his Lyrica. Patient was also continued on Ambien which he states he had been taking for over a year and states that he does not have sleep apnea. Patient discussed his plans that his brother was coming from [place] on August 25 and was going to take the patient back to [place] to live there. Patient reports that he is no longer having any suicidal thoughts, states that he is no longer feeling depressed and is feeling ready to leave the hospital. Patient reports that he will be testing his blood sugars if he is able to get another glucometer. Patient's white count was elevated and the [facility] felt there was no evidence of an infection and so no further workup was done. Patient was on insulin to cover his blood sugars on a sliding scale. Patient's hemoglobin A1c was 8.9. Patient reported no side effects from the Zoloft and felt that the medication had been helpful to him and felt he was ready to return home. Allergies Penicillins Allergy (Verified 08/09/17 23:45) Rash/Hives Laboratory Last Values WBC 14.0 k/uL (3.8-10.6) H 08/09/17 20:47 RBC 5.85 m/uL (4.30-5.90) 08/09/17 20:47 Hgb 16.6 gm/dL (13.0-17.5) 08/09/17 20:47 Hct 49.9 % (39.0-53.0) 08/09/17 20:47 MCV 85.2 fL (80.0-100.0) 08/09/17 20:47 MCH 28.4 pg (25.0-35.0) 08/09/17 20:47 MCHC 33.3 g/dL (31.0-37.0) 08/09/17 20:47 RDW 13.4 % (11.5-15.5) 08/09/17 20:47 Plt Count 218 k/uL (150-450) 08/09/17 20:47 Neutrophils % 62 % 08/09/17 20:47 Lymphocytes % 29 % 08/09/17 20:47 Monocytes % 5 % 08/09/17 20:47 Eosinophils % 2 % 08/09/17 20:47 Basophils % 0 % 08/09/17 20:47 Neutrophils # 8.7 k/uL (1.3-7.7) H 08/09/17 20:47 Lymphocytes # 4.1 k/uL (1.0-4.8) 08/09/17 20:47 Monocytes # 0.6 k/uL (0-1.0) 08/09/17 20:47 Eosinophils # 0.3 k/uL (0-0.7) 08/09/17 20:47 Basophils # 0.1 k/uL (0-0.2) 08/09/17 20:47 Sodium 139 mmol/L (137-145) 08/09/17 20:47 Potassium 4.5 mmol/L (3.5-5.1) 08/09/17 20:47 Chloride 101 mmol/L (98-107) 08/09/17 20:47 Carbon Dioxide 25 mmol/L (22-30) 08/09/17 20:47 Anion Gap 13 mmol/L 08/09/17 20:47 BUN 17 mg/dL (9-20) 08/09/17 20:47 Creatinine 0.60 mg/dL (0.66-1.25) L 08/09/17 20:47 Est GFR (CKD-EPI)AfAm >90 (>60 ml/min/1.73 sqM) 08/09/17 20:47 Est GFR (CKD-EPI)NonAf >90 (>60 ml/min/1.73 sqM) 08/09/17 20:47 Glucose 165 mg/dL (74-99) H 08/09/17 20:47 POC Glucose (mg/dL) 158 mg/dL (75-99) H 08/12/17 05:39 POC Glu Roof Fitter ID Jessica Yee 08/12/17 05:[address] Glu mg/dL 209 08/09/17 20:47 Hemoglobin A1c 8.9 % (4.0-6.0) H 08/09/17 20:47 Calcium 10.2 mg/dL (8.4-10.2) 08/09/17 20:47 Total Bilirubin 0.5 mg/dL (0.2-1.3) 08/09/17 20:47 AST 17 U/L (17-59) 08/09/17 20:47 ALT 30 U/L (21-72) 08/09/17 20:47 Alkaline Phosphatase 91 U/L (38-126) 08/09/17 20:47 Total Protein 6.9 g/dL (6.3-8.2) 08/09/17 20:47 Albumin 4.4 g/dL (3.5-5.0) 08/09/17 20:47 Triglycerides 158 mg/dL (<150) H 08/09/17 20:47 Cholesterol 164 mg/dL (<200) 08/09/17 20:47 LDL Cholesterol, Calc 101 mg/dL (0-99) H 08/09/17 20:47 HDL Cholesterol 31 mg/dL (40-60) L 08/09/17 20:47 TSH 1.840 mIU/L (0.465-4.680) 08/09/17 20:47 Urine Color Yellow 08/09/17 20:18 Urine Appearance Clear (Clear) 08/09/17 20:18 Urine pH 5.5 (5.0-8.0) 08/09/17 20:18 Ur Specific [place] 1.013 (1.001-1.035) 08/09/17 20:18 Urine Protein 1+ (Negative) H 08/09/17 20:18 Urine Glucose (UA) Trace (Negative) H 08/09/17 20:18 Urine Ketones Negative (Negative) 08/09/17 20:18 Urine Blood Negative (Negative) 08/09/17 20:18 Urine Nitrite Negative (Negative) 08/09/17 20:18 Urine Bilirubin Negative (Negative) 08/09/17 20:18 Urine Urobilinogen <2.0 mg/dL (<2.0) 08/09/17 20:18 Ur Leukocyte Esterase Negative (Negative) 08/09/17 20:18 Urine RBC <1 /hpf (0-5) 08/09/17 20:18 Urine WBC <1 /hpf (0-5) 08/09/17 20:18 Ur Squamous Epith Cells <1 /hpf (0-4) 08/09/17 20:18 Urine Mucus Rare /hpf (None) H 08/09/17 20:18 Urine Opiates Screen Not Detected (NotDetected) 08/09/17 20:18 Ur Oxycodone Screen Not Detected (NotDetected) 08/09/17 20:18 Urine Methadone Screen Not Detected (NotDetected) 08/09/17 20:18 Ur Propoxyphene Screen Not Detected (NotDetected) 08/09/17 20:18 Ur Barbiturates Screen Not Detected (NotDetected) 08/09/17 20:18 U Tricyclic Antidepress Not Detected (NotDetected) 08/09/17 20:18 Ur Phencyclidine Scrn Not Detected (NotDetected) 08/09/17 20:18 Ur Amphetamines Screen Not Detected (NotDetected) 08/09/17 20:18 U Methamphetamines Scrn Not Detected (NotDetected) 08/09/17 20:18 U Benzodiazepines Scrn Not Detected (NotDetected) 08/09/17 20:18 Urine Cocaine Screen Not Detected (NotDetected) 08/09/17 20:18 U Marijuana (THC) Screen Not Detected (NotDetected) 08/09/17 20:18 Discharge Mental Status: Appearance/Attitude: Patient is an obese male, casually dressed using a walker for ambulation, he makes good eye contact and is cooperative. Behavior: Patient does not exhibit any psychomotor agitation or retardation. Speech/Language: Patient's speech is spontaneous of normal volume and rhythm and he is coherent Thought Process: Patient is goal-directed there is no evidence of loose association or flight of ideas Thought Content: Patient denies any auditory or visual hallucinations and no delusions or paranoid ideation were elicited. Patient states that he is no longer feeling depressed, states that he is eager to return home and moved to [place] with his brother. Patient reports no side effects from the medication. He states he sleeps fairly well and does use Ambien on a nightly basis. He reports his appetite is good. Suicidal/Homicidal Ideation: Patient denies any current suicidal or homicidal ideation. Sensorium/Cognition: Patient is alert and oriented to person, place, and time and his recent and remote memory are grossly intact Mood/Affect: Patient's mood is euthymic and his affect is appropriate Insight/Judgment: Patient's insight and judgment are intact Risk Assessment: Patient's risk for self harm is low as the patient has no prior suicide attempts, no use of drugs or alcohol Discharge Plan: Patient will be discharged and will return to live where he had been living. Patient will continue on Zoloft 50 mg in the morning, he will continue on his prior medications of Norvasc, Lipitor, Glucotrol, Glucophage and Ambien. Patient will be given prescriptions for all of these medications and will be sent to the pharmacy at the hospital and the patient was also ordered a glucometer and testing supplies. Patient will [facility] and was encouraged to be compliant with medications and follow-up care. Patient was encouraged to continue to avoid all alcohol and drugs. Patient Condition at Discharge: Stable Plan - Discharge Summary Discharge Rx Participant: No New Discharge Prescriptions: New Sertraline [Zoloft] 50 mg PO DAILY #14 tab Continue Blood Sugar Diagnostic [Test Strips] 1 each AC-TID #100 strip Blood-Glucose Meter [Blood Glucose Monitor] 1 each AC-TID #1 each Lancets 1 each AC-TID #100 each amLODIPine [Norvasc] 10 mg PO DAILY #28 tab Atorvastatin [Lipitor] 20 mg PO DAILY #28 tab glipiZIDE [Glucotrol] 10 mg PO AC-BID #56 tab metFORMIN HCL [Glucophage] 1,000 mg PO BID #56 tablet Zolpidem Tartrate [Ambien] 10 mg PO HS PRN #14 tablet PRN Reason: Insomnia Nicotine 21Mg/24Hr Patch [Habitrol] 1 patch TRANSDERM DAILY #14 patch Discontinued Citalopram Hydrobromide [CeleXA] 20 mg PO DAILY Pregabalin [Lyrica] 50 mg PO BID Ibuprofen [Motrin] 600 mg PO Q8HR PRN #9 tab PRN Reason: Pain Discharge Medication List Blood Sugar Diagnostic [Test Strips] 1 each AC-TID #100 strip 01/30/17 [Rx] Blood-Glucose Meter [Blood Glucose Monitor] 1 each AC-TID #1 each 01/30/17 [ Rx] Lancets 1 each AC-TID #100 each 01/30/17 [Rx] Atorvastatin [Lipitor] 20 mg PO DAILY #28 tab 08/12/17 [Rx] Nicotine 21Mg/24Hr Patch [Habitrol] 1 patch TRANSDERM DAILY #14 patch 08/12/17 [ Rx] Sertraline [Zoloft] 50 mg PO DAILY #14 tab 08/12/17 [Rx] Zolpidem Tartrate [Ambien] 10 mg PO HS PRN #14 tablet 08/12/17 [Rx] amLODIPine [Norvasc] 10 mg PO DAILY #28 tab 08/12/17 [Rx] glipiZIDE [Glucotrol] 10 mg PO AC-BID #56 tab 08/12/17 [Rx] metFORMIN HCL [Glucophage] 1,000 mg PO BID #56 tablet 08/12/17 [Rx] Follow up Appointment(s)/Referral(s): [facility] [Outside] - As Needed (08.14.17 at 1:30pm with Joycelyn 08.25.17 at 11:00am with Dr. Schwarz) [facility] [[facility]STA[facility]] - 1 Week Activity/Diet/Wound Care/Special Instructions: Keep your follow up appointments as scheduled. Continue medications as prescribed. No alcohol or street drugs. No guns or weapons. Crisis line if needed . Discharge Disposition: HOME SELF-CARE
[2017-08-12 13:03] LABS: Glucose,Whole Blood 122 mg/dL (75-99)
== END 2017-08-12 14:48 | disposition home or self-care (01) | DRG 885 ==
LOC: EC 20:08 → 3MHU 22:58
PROVIDERS: ADMIT Psychiatry & Neurology Psychiatry; ATTEND Psychiatry & Neurology Psychiatry
DX: F33.9 Major depressive disorder, recurrent, unspecified (principal); R45.851 Suicidal ideations; Z68.41 Body mass index [BMI] 40.0-44.9, adult; I10 Essential (primary) hypertension; E78.5 Hyperlipidemia, unspecified; E66.01 Morbid (severe) obesity due to excess calories; E11.42 Type 2 diabetes mellitus with diabetic polyneuropathy; M19.90 Unspecified osteoarthritis, unspecified site; G47.00 Insomnia, unspecified; L40.9 Psoriasis, unspecified; F41.9 Anxiety disorder, unspecified; F17.200 Nicotine dependence, unspecified, uncomplicated; I45.10 Unspecified right bundle-branch block; Z88.0 Allergy status to penicillin; Z65.3 Problems related to other legal circumstances; Z79.899 Other long term (current) drug therapy; Z79.1 Long term (current) use of non-steroidal anti-inflammatories (NSAID); Z79.84 Long term (current) use of oral hypoglycemic drugs; Z80.1 Family history of malignant neoplasm of trachea, bronchus and lung; Z76.1 Encounter for health supervision and care of foundling
CPT/HCPCS: 36415; 80053; 80061; 80306; 81001; 82075; 83036; 84443; 85025; 93005; 99285